=== PATIENT | female | born 1980 | race Caucasian/White ===

== ENCOUNTER 2019-01-03 14:39 | Emergency (ER) | payer OTHER ==
[~2019-01-03] VITALS: Ht 167.6 cm; Wt 61.3 kg
[2019-01-03 15:03] VITALS: Ht 167.6 cm; Wt 61.3 kg
--- NOTE | 2019-01-03 18:03 | ERD ---
ER Documentation Chief Complaint Chief Complaint Complainsof severe headache x 3 days HPI 38-year-old female, presents the emergency department, complaining of right ear pain associated with a headache. Denies fevers, no chills, she is also complaining of sore throat. ROS All systems reviewed and are negative except as per history of present illness. Allergies Allergies: Coded Allergies: No Known Allergy (Unverified , 01/03/19) PMhx/Soc Medical and Surgical Hx: pt denies Medical Hx, pt denies Surgical Hx Hx Alcohol Use: No Hx Substance Use: No Hx Tobacco Use: No Physical Exam Vitals Vital Signs Date Temp Pulse Resp B/P (MAP) Pulse Ox O2 O2 Flow FiO2 Time Delivery Rate 01/03/19 96.6 82 20 122/70 98 15:03 (87) Physical Exam Const: No acute distress Head: Atraumatic Eyes: Normal Conjunctiva ENT: Normal External Ears, Nose and Mouth. Neck: Full range of motion. No meningismus. Resp: Clear to auscultation bilaterally Cardio: Regular rate and rhythm, no murmurs Abd: Soft, non tender, non distended. Normal bowel sounds Skin: No petechiae or rashes Back: No midline or flank tenderness Ext: No cyanosis, or edema Neur: Awake and alert Psych: Normal Mood and Affect Departure Diagnosis: Primary Impression: Acute sinusitis Condition: Stable Additional Instructions: Muchas monica por [facility] para hsieh servicio. Esperamos que en hsieh visita a la yeyo de emergencia hsieh problema medico haya sido solucionado y que se sienta mucho mejor. Para estar seguros que hsieh mejoria sigue en proceso, le pedimos el favor de hacer demarco sebas de seguimiento medico con hsieh doctor primario en los proximos 2-4 [place]. Lleve con usted estos documentos y las medicinas recetadas. Si flower sintomas empeoran, NO SE ESPERE, por favor regrese a yeyo de emergencia INMEDIATAMENTE. En james que usted no tenga un mdico de atencin primaria: Llame al mdico o clnica comunitaria de referencia que aparece abajo leeanne las horas de consultorio para hacer demarco sebas para que le vean. CLINICAS: [facility] [id number] [facility] [phone] [address] [facility] [phone] [address] [facility] [phone] [place] [phone] [facility]. [phone] ARLINE HOLLAND MD Jan 03, 2019 18:03
[2019-01-03] MEDS ORDERED: [UNRECOGNIZED DRUG - CODE] PO (18:52)
[2019-01-03] MEDS ORDERED: IBUP-1561 PO (18:52)
[2019-01-03] MEDS ORDERED: AMOX500C2 PO (18:52)
[2019-01-03 19:08] VITALS: BP 128/58; PULSE 66; RESP 18
== END 2019-01-03 19:12 | disposition home or self-care (01) ==
LOC: FTE 14:39
DX: J01.90 Acute sinusitis, unspecified (principal); R40.2142 Coma scale, eyes open, spontaneous, at arrival to emergency department; R40.2252 Coma scale, best verbal response, oriented, at arrival to emergency department; R40.2362 Coma scale, best motor response, obeys commands, at arrival to emergency department
CPT/HCPCS: 99283